=== PATIENT | male | born 1970 | race Caucasian/White ===

== ENCOUNTER 2019-06-03 21:15 | Emergency (ER) | payer BC ==
[2019-06-03 21:21] VITALS: BP 138/86; PULSE 102; RESP 18; TEMP 98.7
[2019-06-03] MEDS ORDERED: LIDOCAINE 1% INJ 10MG/ML (20 ML MDV) SQ STA (21:24)
[2019-06-03] MEDS ORDERED: DIPH,PERTUS(ACELL)TETVAC-LF 0.5 ML VIAL IM ONE (21:24)
--- NOTE | 2019-06-03 21:56 | ED ---
General Adult HPI - General Source: patient, RN notes reviewed, old records reviewed Mode of arrival: ambulatory Limitations: no limitations <Darin Cantor - Last Filed: 06/03/19 21:55> <Vanessa Das - Last Filed: 06/06/19 01:10> - General Chief complaint: Wound/Laceration Stated complaint: Chin Laceration Time Seen by Provider: 06/03/19 21:18 - History of Present Illness Initial comments: 48-year-old male patient resents to ED with chief complaint of laceration. Patient reports that he was hit in the face with a hockey puck in his chin region while playing. Does not know date of last tetanus. No jaw pain. No loss of consciousness. No blood thinners. Systemic: Pt denies fatigue, fever/chills, rash. Pt denies weakness, night sweats, weight loss. Neuro: Pt denies headache, visual disturbances, syncope or pre-syncope. HEENT: Pt denies ocular discharge or irritation, otalgia, rhinorrhea, pharyngi tis or notable lymphadenopathy. Cardiopulmonary: Pt denies chest pain, SOB, heart palpitations, dyspnea on exertion. Abdominal/GI: Pt denies abdominal pain, n/v/d. : Pt denies dysuria, burning w/ urination, frequency/urgency. Denies new onset urinary or bowel incontinence. MSK: Pt denies myalgia, loss of strength or function in extremities. Neuro: Pt denies new onset weakness, paresthesias. (Darin Cantor) - Related Data Home Medications Medication Instructions Recorded Confirmed No Known Home Medications 06/03/19 06/03/19 Allergies Allergy/AdvReac Type Severity Reaction Status Date / Time levofloxacin [From Levaquin] Allergy Nausea Verified 06/03/19 21:17 Review of Systems ROS Other: All systems not noted in ROS Statement are negative. <Drain Cantor - Last Filed: 06/03/19 21:55> ROS Other: All systems not noted in ROS Statement are negative. <Vanessa Das - Last Filed: 06/06/19 01:10> ROS Statement: Those systems with pertinent positive or pertinent negative responses have been documented in the HPI. Past Medical History Past Medical History: No Reported History History of Any Multi-Drug Resistant Organisms: None Reported Past Surgical History: No Surgical Hx Reported Past Psychological History: No Psychological Hx Reported Smoking Status: Never smoker Past Alcohol Use History: None Reported Past Drug Use History: None Reported <SakshiDarin Nadiya - Last Filed: 06/03/19 21:55> General Exam Limitations: no limitations <Darin Cantor - Last Filed: 06/03/19 21:55> - General Exam Comments Initial Comments: Constitutional: NAD, AOX3, Pt has pleasant affect. HEENT: NC/AT, trachea midline, neck supple, no lymphadenopathy. Posterior pharynx non erythematous, without exudates. External ears appear normal, without discharge. Mucous membranes moist. Eyes PERRLA, EOM intact. There is no scleral icterus. No pallor noted. Cardiopulmonary: RRR, no murmurs, rubs or gallops, no JVD noted. Lungs CTAB in anterior and posterior arrieta. No peripheral edema. Abdominal exam: Abdomen soft and non-distended. Abdomen non-tender to palpation in all 4 quadrants. Bowel sounds active in LLQ. No hepatosplenomegaly. No ecchymosis Neuro: CN II-XII grossly intact. No nuchal rigidity. No raccon eyes, no fuentes sign, no hemotympanum. No cervical spinal tenderness. MSK: 3 cm laceration left chin region irrigated approximated with 5 simple interrupted sutures. Full active range of motion of jaw able to bite down on stick without difficulty. No posterior calf tenderness bilaterally, homans sign negative bilaterally. Posterior tibialis and radial pulse +2 bilaterally. Sensation intact in upper and lower extremities. Full active ROM in upper and lower extremities, 5/5 stregnth. (Darin Cantor) Course Vital Signs 06/03/19 06/03/19 06/03/19 21:18 21:52 21:54 Temperature 98.7 F 98.7 F 98.7 F Pulse Rate 102 H 102 H 102 H Respiratory 18 18 18 Rate Blood Pressure 138/86 138/86 138/86 O2 Sat by Pulse 96 96 96 Oximetry Procedures - Laceration Laceration #1 Consent Obtained: verbal consent Site: face Size (cm): 3 Description: linear Depth: simple, single layer Anesthetic Used: lidocaine 1% Anesthesia Technique: local infiltration Amount (mls): 2 Pre-repair: wound explored, irrigated extensively, deep structures intact Type of Sutures: nylon Size of Sutures: 5-0 Number of Sutures: 5 Technique: simple, interrupted Patient Tolerated Procedure: well, no complications <Darin Cantor - Last Filed: 06/03/19 21:55> Medical Decision Making <Darin Cantor - Last Filed: 06/03/19 21:55> <Vanessa Das - Last Filed: 06/06/19 01:10> - Medical Decision Making 48-year-old male patient presents to the chief complaint of laceration. Was hit in the chin with a hockey puck. 3 cm laceration. Irrigated approximated with 5 simple interrupted sutures. Tired procedure well. Discharged with return precautions. Case discussed with Dr. Das. (Darin Cantor) I was available for consultation in the emergency department. The history and physical exam were done by the midlevel provider. I was consulted for this patients care. I reviewed the case with the midlevel provider and based on their presentation of the patient, I agree with the assessment, medical decision making and plan of care as documented. Chart was dictated using [employer] dictation software. Attempts were made to correct any dictation errors however some typographical errors may persist. (Vanessa Das) Disposition Is patient prescribed a controlled substance at d/c from ED?: No <Darin Cantor - Last Filed: 06/03/19 21:55> <Vanessa Das - Last Filed: 06/06/19 01:10> Clinical Impression: Laceration Disposition: HOME SELF-CARE Condition: Stable Instructions (If sedation given, give patient instructions): Care For Your Stitches (ED), Laceration (ED) Additional Instructions: Patient to adhere to previously discussed treatment plan and will take medication(s) as directed. Patient to follow up with PCP in 1-2 days. Patient to return to ED if symptoms do not improve. Please return for suture removal: Hand: 7-10 days Face: 5 days Chest/abdomen: 12-14 days Extremities: 7-10 days Scalp: 7 days Eyebrow: 5-7 days Foot/sole: 12-14 days Please monitor for signs and symptoms of infection including: redness, warmth, drainage, discharge. Please return to ED if these signs or symptoms occur, new signs or symptoms develop or if condition worsens in anyway. Referrals: Bridger Louise III, MD [Primary Care Provider] - 1-2 days
== END 2019-06-03 21:58 | disposition home or self-care (01) ==
LOC: EC 21:15
DX: S01.81XA Laceration without foreign body of other part of head, initial encounter (principal); Z88.1 Allergy status to other antibiotic agents; Z23 Encounter for immunization; W21.220A Struck by ice hockey puck, initial encounter; Y93.22 Activity, ice hockey; Y92.330 Ice skating rink (indoor) (outdoor) as the place of occurrence of the external cause
CPT/HCPCS: 90715; 99283; 12013; 90471; J2001

== ENCOUNTER → 2020-04-14 | Outpatient (CLI) | payer BC ==
--- NOTE | 2020-04-14 07:53 | US ---
EXAMINATION TYPE: US thyroid st tissue head/neck DATE OF EXAM: 04/14/2020 COMPARISON: NONE CLINICAL HISTORY: R13.13 Dysphagia. GLAND SIZE: Right Lobe: 5.4 x 1.9 x 1.7 cm Overall Parenchyma: homogenous Left Lobe: 4.6 x 1.6 x 1.5 cm Overall Parenchyma: homogeneous Isthmus Thickness: 0.2 cm NODULES RIGHT: # of nodules measured on right: 0 LEFT: # of nodules measured on left: 0 ISTHMUS: # of nodules measured in the isthmus: 0 Bilateral neck scanned, no evidence of lymphadenopathy. Right thyroid lobe is enlarged IMPRESSION: 1. Correlate for thyromegaly. 2. No suspicious thyroid nodules
== END | disposition home or self-care (01) ==
LOC: RADUSWWP 07:03
PROVIDERS: ATTEND Family Medicine
DX: R13.13 Dysphagia, pharyngeal phase (principal)
CPT/HCPCS: 76536

== ENCOUNTER 2021-05-31 10:30 | Day surgery (SDC) | payer BC ==
[2021-05-26 15:49] VITALS: BMI 24.4
[~2021-05-31 10:30] MED LIST: LACTATED RINGERS 1,000 ML IV SCH
[2021-05-31 11:03] VITALS: RESP 16; TEMP 97.9
[2021-05-31] MEDS ORDERED: LIDOCAINE 1% (10MG/ML) FOR IV START INTRADERMA ONE (11:04)
[2021-05-31] MEDS ORDERED: PROPOFOL 10 MG/ML 20 ML VIAL IV ONE (12:05)
[2021-05-31] MEDS ORDERED: LIDOCAINE 1% INJ 10MG/ML (20 ML MDV) ONE (12:05)
--- NOTE | 2021-05-31 12:12 | P.GSHP ---
History of Present Illness H&P Date: 05/31/21 Chief Complaint: Colon cancer screening Patient here today for colonoscopy. He has not had 1 previously. No bowel complaints. Family history of colon cancer and a aunts. Past Medical History Past Medical History: No Reported History History of Any Multi-Drug Resistant Organisms: None Reported Past Surgical History: No Surgical Hx Reported Past Anesthesia/Blood Transfusion Reactions: No Reported Reaction Smoking Status: Former smoker - Past Family History Mother Family Medical History: No Reported History Medications and Allergies Home Medications Medication Instructions Recorded Confirmed Type No Known Home Medications 06/03/19 05/31/21 History Allergies Allergy/AdvReac Type Severity Reaction Status Date / Time levofloxacin [From Levaquin] Allergy Nausea Verified 05/31/21 10:58 Surgical - Exam Vital Signs Temp Pulse Resp BP Pulse Ox 97.9 F 65 16 152/84 98 05/31/21 11:02 05/31/21 11:02 05/31/21 11:02 05/31/21 11:02 05/31/21 11:02 Physical exam: General: Well-developed, well-nourished HEENT: Normocephalic, sclerae nonicteric Abdomen: Nontender, nondistended Extremities: No edema Neuro: Alert and oriented Assessment and Plan (1) Colon cancer screening Narrative/Plan: Will proceed with colonoscopy Current Visit: Yes Status: Acute Code(s): Z12.11 - ENCOUNTER FOR SCREENING FOR MALIGNANT NEOPLASM OF COLON SNOMED Code(s): 667536520
--- NOTE | 2021-05-31 12:25 | P.PCN ---
Date of Procedure: 05/31/21 Procedure(s) Performed: PREOPERATIVE DIAGNOSIS: Colon cancer screening POSTOPERATIVE DIAGNOSIS: Normal exam PROCEDURE: Colonoscopy ANESTHESIA: MAC SURGEON: Sukhdeep Mauro M.D. SPECIMENS: None ENDOSCOPIC PROCEDURE: The patient was placed on the endoscopy table in the left decubitus position. The Olympus colonoscope was inserted into the anus and passed under direct visualization to the base of the cecum. The appendiceal orifice was visualized. From that point the scope was slowly withdrawn inspecti ng all surfaces carefully. There were no neoplastic inflammatory or polypoid lesions throughout the cecum, ascending, transverse, descending, sigmoid and rectum. There was no visible diverticulosis noted. The patient's colon was slightly tortuous. Digital rectal examination was normal. The patient was taken to the recovery room in stable condition per anesthesia guidelines. RECOMMENDATIONS: Resume diet. Follow-up colonoscopy in 10 years.
[2021-05-31 12:45] VITALS: BP 117/80; PULSE 52
== END 2021-05-31 13:06 | disposition home or self-care (01) ==
LOC: ORWHC2ENDO 10:30
PROVIDERS: ATTEND Surgery
DX: Z12.11 Encounter for screening for malignant neoplasm of colon (principal); Z80.0 Family history of malignant neoplasm of digestive organs; Z87.891 Personal history of nicotine dependence; Z88.1 Allergy status to other antibiotic agents
CPT/HCPCS: 45378; J2001; J2704

== ENCOUNTER → 2024-04-18 | Outpatient (CLI) | payer BC ==
[2024-04-18 14:54] LABS: Basophils # (A) 0.07 X 10*3/uL (0.00-0.10); Basophils % (A) 1.1 %; Eosinophils # (A) 0.45 X 10*3/uL (0.04-0.35); HGB 14.6 g/dL (13.0-17.0); Lymphocytes # (A) 2.97 X 10*3/uL (0.90-5.00); MCH 32.7 pg (27.0-32.0); MCHC 34.8 g/dL (32.0-37.0); Monocytes # (A) 0.74 X 10*3/uL (0.20-1.00); Monocytes % (A) 11.5 %; NRBC Per 100 WBC 0 X 10*3/uL (0.00-0.01); Neutrophils # (A) 2.21 X 10*3/uL (1.80-7.70); Neutrophils % (A) 34.2 %; Platelet Count 285 X 10*3/uL (140-440); RBC 4.47 X 10*6/uL (4.40-5.60); RDW 12.2 % (11.5-14.5); WBC 6.45 X 10*3/uL (4.50-10.00)
[2024-04-18 15:26] LABS: ALT 32 U/L (10-49); AST 35 U/L (14-35); Albumin 4.6 g/dL (3.8-4.9); Albumin/Globulin Ratio 2.42 Ratio (1.60-3.17); Alkaline Phosphatase 53 U/L (41-126); Blood Urea Nitrogen 14.3 mg/dL (9.0-27.0); Calcium 10.2 mg/dL (8.7-10.3); Carbon Dioxide 26.9 mmol/L (21.6-31.8); Chloride 104 mmol/L (96-109); Chol/HDL Ratio 3.56 Ratio; Globulin 1.9 g/dL (1.6-3.3); Glucose 104 mg/dL (70-110); Potassium 4.8 mmol/L (3.5-5.5); Sodium 139 mmol/L (135-145); Total Bilirubin 0.4 mg/dL (0.3-1.2); Total Protein 6.5 g/dL (6.2-8.2); VLDL Calculation 12.38 mg/dL (5.00-40.00)
== END | disposition home or self-care (01) ==
LOC: LABWHC1 08:15
PROVIDERS: ATTEND Family Medicine
DX: Z00.00 Encounter for general adult medical examination without abnormal findings (principal); E83.52 Hypercalcemia; Z12.5 Encounter for screening for malignant neoplasm of prostate; Z13.220 Encounter for screening for lipoid disorders; Z13.29 Encounter for screening for other suspected endocrine disorder
CPT/HCPCS: 36415; 80053; 80061; 83970; 84443; 85025